=== PATIENT | female | born 1995 | race Caucasian/White ===

== ENCOUNTER 2016-09-07 16:50 | Emergency (ER) | payer OTHER ==
[~2016-09-07] VITALS: Ht 160 cm; Wt 45.8 kg
[~2016-09-07 16:50] MED LIST: ADVAIR 250/501 EA INH; ALBUTEROL0.09 MG/A2; ALLEGRA180 MG PO; AUGMENTIN 400 M1 CTB PO; AUGMENTIN ES-6050 ML PO; BACTRIM DS 8001 TA1 PO; BENTYL10 MG PO; BENTYL20 MG PO; BROMFED 2 MG/5120 ML; CARAFATE1 G1 PO; CATAFLAM50 MG PO; CLARITIN10 MG PO; CYCLOBENZAPRINE10 MG PO; FLEXERIL5 MG PO; IMPLANON68 MG ID; LAMICTAL25 MG PO; MEDROL DOSEPAK4 MG PO; MIRALAX POWDER17 G1 PO; MOTRIN400 MG PO; MOTRIN600 MG PO; MOTRIN800 MG PO; NAPROSYN500 MG PO; PRILOSEC20 MG PO; PROAIR HFA0.09 MG/AC IH; PROTONIX40 MG PO; PROVENTIL0.09 MG/AC IH; PROZAC20 MG PO; SEROQUEL25 MG PO; SINGULAIR10 MG PO; SINGULAIR5 MG PO; SYNTHROID0.025 MG PO; THE MEDICINE SH20 M1 PO; TRAZODONE100 MG PO; ZANTAC 150150 MG PO; ZITHROMAX Z PA250 MG PO; ZOFRAN ODT4 MG SL; ZOFRAN4 MG PO; Zofran4 MG PO
[2016-09-07] MEDS ORDERED: LAMICTAL100 MG PO (17:13)
[2016-09-07 17:34] LABS: BASO # 0.1 10*3/uL (0.0-0.1); BASO % 0.5 % (0.0-1.0); EOS # 0.1 10*3/uL (0.0-0.4); EOS % 0.9 % (1.0-4.0); HEMATOCRIT 42.4 % (37.0-47.0); HEMOGLOBIN 14.2 g/dl (12.0-16.0); LYMPH # 4.5 10*3/uL (1.3-4.4); LYMPH % 42.6 % (27.0-41.0); MEAN CELL VOLUME 90.8 fl (81.0-99.0); MEAN CORPUSCULAR HGB 30.4 pg (27.0-31.0); MEAN CORPUSCULAR HGB CONC 33.5 g/dl (33.0-37.0); MEAN PLATELET VOLUME 10.7 fl (9.6-12.3); MONO # 0.7 10*3/uL (0.1-1.0); MONO % 6.4 % (3.0-9.0); NEUT # 5.2 10*3/uL (2.3-7.9); NEUT % 49.3 % (47.0-73.0); PLATELET COUNT AUTOMATED 219 10*3/uL (130-400); RED BLOOD COUNT 4.67 10*6/uL (4.10-5.10); RED CELL DISTRI WIDTH 12.5 % (0-14.5); WHITE BLOOD COUNT 10.6 10*3/uL (4.8-10.8)
[2016-09-07 17:52] LABS: BILIRUBIN NEGATIVE (NEGATIVE); BLOOD 3+ (NEGATIVE); CLARITY CLEAR (CLEAR); COLOR YELLOW (YELLOW); GLUCOSE NEGATIVE (NEGATIVE); KETONE NEGATIVE (NEGATIVE); LEUKO ESTERASE TRACE (NEGATIVE); NITRITE NEGATIVE (NEGATIVE); PH 5.5 (5.0-9.0); PROTEIN TRACE (NEGATIVE); SPECIFIC GRAVITY >= 1.030 (1.005-1.030)
[2016-09-07 18:00] LABS: ALBUMIN 3.9 gm/dl (3.1-4.5); ALKALINE PHOSPHATASE 77 U/L (45-117); BILIRUBIN, TOTAL 0.5 mg/dl (0.2-1.0); BUN 6 mg/dl (7-24); CARBON DIOXIDE 26 mmol/L (21-32); CHLORIDE 107 mmol/L (98-107); EST GLOM FILT AFRICAN AMERICAN > 60 ml/min; GLUCOSE 81 mg/dL (65-99); POTASSIUM 4.1 mmol/L (3.5-5.1); SGOT/AST 15 IU/L (3-35); SGPT/ALT 13 U/L (12-78); SODIUM 142 mmol/L (136-145); TOTAL PROTEIN 6.9 gm/dL (6.4-8.2)
[2016-09-07 18:25] LABS: BACTERIA 3+; MUCOUS TRACE; URINE REFLEX COMMENT YES (NO)
[2016-09-07] MEDS ORDERED: BENTYL10 MG PO (21:48)
== END 2016-09-07 21:52 | disposition home or self-care (01) ==
LOC: ED 16:50
PROVIDERS: Emergency Medicine; Nurse Practitioner Family
DX: R10.9 Unspecified abdominal pain (principal); F17.200 Nicotine dependence, unspecified, uncomplicated; Z88.1 Allergy status to other antibiotic agents; Z79.899 Other long term (current) drug therapy

== ENCOUNTER → 2016-09-26 | Outpatient (CLI) | payer OTHER ==
[~2016-09-26] MED LIST changes: +LAMICTAL100 MG PO
[2016-09-26 10:07] LABS: BASO # 0.1 10*3/uL (0.0-0.1); BASO % 0.5 % (0.0-1.0); EOS # 0.1 10*3/uL (0.0-0.4); EOS % 1.3 % (1.0-4.0); HEMOGLOBIN 15.7 g/dl (12.0-16.0); IG # 0.1 10*3/uL (0.0-0.1); LYMPH # 2.9 10*3/uL (1.3-4.4); LYMPH % 26.5 % (27.0-41.0); MEAN CORPUSCULAR HGB 30.4 pg (27.0-31.0); MEAN CORPUSCULAR HGB CONC 32.7 g/dl (33.0-37.0); MEAN PLATELET VOLUME 10.9 fl (9.6-12.3); MONO # 0.6 10*3/uL (0.1-1.0); MONO % 5.7 % (3.0-9.0); NEUT # 7.1 10*3/uL (2.3-7.9); NEUT % 65.5 % (47.0-73.0); PLATELET COUNT AUTOMATED 239 10*3/uL (130-400); RED BLOOD COUNT 5.16 10*6/uL (4.10-5.10); RED CELL DISTRI WIDTH 13.3 % (0-14.5); WHITE BLOOD COUNT 10.8 10*3/uL (4.8-10.8)
[2016-09-26 10:33] LABS: ALBUMIN 4.7 gm/dl (3.1-4.5); ALKALINE PHOSPHATASE 94 U/L (45-117); BILIRUBIN, TOTAL 0.5 mg/dl (0.2-1.0); BUN 10 mg/dl (7-24); CARBON DIOXIDE 25 mmol/L (21-32); CHLORIDE 108 mmol/L (98-107); EST GLOM FILT AFRICAN AMERICAN > 60 ml/min; GLUCOSE 116 mg/dL (65-99); SGOT/AST 17 IU/L (3-35); SGPT/ALT 23 U/L (12-78); SODIUM 142 mmol/L (136-145); TOTAL PROTEIN 7.8 gm/dL (6.4-8.2)
== END | disposition home or self-care (01) ==
LOC: LAB 09:35
DX: R10.9 Unspecified abdominal pain (principal)

== ENCOUNTER 2019-01-11 16:42 | Emergency (ER) | payer OTHER ==
[~2019-01-11] VITALS: Ht 162.5 cm; Wt 54.4 kg
== END 2019-01-11 18:19 | disposition home or self-care (01) ==
LOC: ED 16:42
DX: S90.32XA Contusion of left foot, initial encounter (principal); F17.200 Nicotine dependence, unspecified, uncomplicated; Z88.1 Allergy status to other antibiotic agents; Z79.899 Other long term (current) drug therapy; W10.8XXA Fall (on) (from) other stairs and steps, initial encounter; Y93.89 Activity, other specified; Y92.89 Other specified places as the place of occurrence of the external cause; Y99.8 Other external cause status

== ENCOUNTER → 2019-02-16 | Outpatient (CLI) | payer OTHER ==
[2019-02-16 14:38] LABS: BASO % 0.4 % (0.0-1.0); EOS % 0.4 % (1.0-4.0); HEMATOCRIT 46.2 % (37.0-47.0); HEMOGLOBIN 15.3 g/dl (12.0-16.0); LYMPH # 3.2 10*3/uL (1.3-4.4); LYMPH % 29.3 % (27.0-41.0); MEAN CELL VOLUME 97.9 fl (81.0-99.0); MEAN CORPUSCULAR HGB 32.4 pg (27.0-31.0); MEAN CORPUSCULAR HGB CONC 33.1 g/dl (33.0-37.0); MEAN PLATELET VOLUME 10.7 fl (9.6-12.3); MONO # 0.8 10*3/uL (0.1-1.0); MONO % 7.4 % (3.0-9.0); NEUT # 6.8 10*3/uL (2.3-7.9); NEUT % 61.9 % (47.0-73.0); PLATELET COUNT AUTOMATED 215 10*3/uL (130-400); RED BLOOD COUNT 4.72 10*6/uL (4.10-5.10); RED CELL DISTRI WIDTH 11.4 % (0-14.5); WHITE BLOOD COUNT 10.9 10*3/uL (4.8-10.8)
[2019-02-16 15:07] LABS: ALKALINE PHOSPHATASE 87 U/L (45-117); BUN 10 mg/dl (7-24); CHLORIDE 105 mmol/L (98-107); CREATININE 0.91 mg/dL (0.55-1.02); IRON 139 ug/dL (50-170); POTASSIUM 3.7 mmol/L (3.5-5.1); SGOT/AST 11 IU/L (3-35); SGPT/ALT 19 U/L (12-78); SODIUM 138 mmol/L (136-145); TOTAL IRON BINDING CAPACITY 369 ug/dl (250-450); TOTAL PROTEIN 7.7 gm/dL (6.4-8.2)
== END | disposition home or self-care (01) ==
LOC: LAB 13:36
PROVIDERS: Nurse Practitioner Family
DX: L30.9 Dermatitis, unspecified (principal)

== ENCOUNTER → 2022-11-16 | Outpatient (CLI) | payer OTHER ==
[2022-11-16 16:18] LABS: BASO # 0.1 10*3/uL (0.0-0.1); BASO % 0.6 % (0.0-1.0); EOS # 0.1 10*3/uL (0.0-0.4); EOS % 0.8 % (1.0-4.0); HEMATOCRIT 42.1 % (37.0-47.0); LYMPH # 3.2 10*3/uL (1.3-4.4); LYMPH % 37.4 % (27.0-41.0); MEAN CELL VOLUME 94.4 fl (81.0-99.0); MEAN CORPUSCULAR HGB 32.1 pg (27.0-31.0); MEAN PLATELET VOLUME 10.3 fl (9.6-12.3); MONO # 0.9 10*3/uL (0.1-1.0); MONO % 10.1 % (3.0-9.0); NEUT # 4.4 10*3/uL (2.3-7.9); NEUT % 50.6 % (47.0-73.0); PLATELET COUNT AUTOMATED 240 10*3/uL (130-400); RED BLOOD COUNT 4.46 10*6/uL (4.10-5.10); WHITE BLOOD COUNT 8.6 10*3/uL (4.8-10.8)
[2022-11-16 16:18] LABS: BILIRUBIN Negative (Negative); BLOOD Negative (Negative); CLARITY Clear (Clear); COLOR Yellow (Yellow); GLUCOSE Negative (Negative); KETONE Negative (Negative); LEUKO ESTERASE Negative (Negative); NITRITE Negative (Negative); SPECIFIC GRAVITY 1.015 (1.001-1.030); UROBILINOGEN 0.2 E.U./dl (0.0-1.0)
[2022-11-16 16:32] LABS: RBC 0-2 rbc/hpf (0-2); WBC 0-2 wbc/hpf (0-5)
[2022-11-16 16:33] LABS: BACTERIA 2+
[2022-11-16 16:57] LABS: ALKALINE PHOSPHATASE 66 U/L (46-116); BUN 9 mg/dl (9-23); CHLORIDE 105 mmol/L (98-107); CHOLESTEROL 116 mg/dL (<200); LDL CHOLESTEROL 41 mg/dL (9-159); POTASSIUM 3.6 mmol/L (3.4-5.1); SGPT/ALT 11 U/L (10-49); TOTAL PROTEIN 6.7 gm/dL (6.0-8.0); TRIGLYCERIDES 68 mg/dl (<150)
== END | disposition home or self-care (01) ==
LOC: LAB 15:58
PROVIDERS: ATTEND Nurse Practitioner Family
DX: E55.9 Vitamin D deficiency, unspecified (principal); I10 Essential (primary) hypertension

== ENCOUNTER 2023-07-28 09:25 | Emergency (ER) | payer OTHER ==
[~2023-07-28] VITALS: Ht 160 cm; Wt 50.8 kg
[2023-07-28] MEDS ORDERED: DEXAMETHASONE 4 MG TAB PO ONE (10:00)
[2023-07-28] MEDS ORDERED: DEXAMETHASONE6 MG PO (10:04)
== END 2023-07-28 10:08 | disposition home or self-care (01) ==
LOC: ED 09:25
DX: U07.1 COVID-19 (principal); J45.909 Unspecified asthma, uncomplicated; K21.9 Gastro-esophageal reflux disease without esophagitis; R51.9 Headache, unspecified; Z88.1 Allergy status to other antibiotic agents; Z98.890 Other specified postprocedural states

== ENCOUNTER 2025-05-03 15:00 | Emergency (ER) | payer OTHER ==
[~2025-05-03] VITALS: Ht 160 cm; Wt 61.2 kg
[~2025-05-03 15:00] MED LIST changes: +DEXAMETHASONE6 MG PO
[2025-05-03 15:58] LABS: BASO # 0.0 10*3/uL (0.0-0.1); BASO % 0.4 % (0.0-1.0); EOS # 0.1 10*3/uL (0.0-0.4); EOS % 1.3 % (1.0-4.0); MEAN CELL VOLUME 92.4 fl (81.0-99.0); MEAN CORPUSCULAR HGB 30.2 pg (27.0-31.0); MEAN PLATELET VOLUME 9.9 fl (9.6-12.3); MONO # 0.6 10*3/uL (0.1-1.0); MONO % 5.8 % (3.0-9.0); NEUT # 7.1 10*3/uL (2.3-7.9); NEUT % 66.0 % (47.0-73.0); NUCLEATED RED BLOOD CELL 0.0 % (0.0-0.0); NUCLEATED RED BLOOD CELL 0.0 10*3/uL (0.0-0.0); PLATELET COUNT AUTOMATED 272 10*3/uL (130-400); RED CELL DISTRI WIDTH 12.8 % (0-14.5)
[2025-05-03 16:22] LABS: BUN 8 mg/dl (9-23); SGPT/ALT 11 U/L (5-49)
[2025-05-03] MEDS ORDERED: Acetaminophen/Oxycodone 5 MG/325 MG TABLET PO ONE ×2 (17:15→19:15)
[2025-05-03] MEDS ORDERED: Lidocaine Hydrochloride 2% 10 ML AMP SC ONE (17:55)
[2025-05-03] MEDS ORDERED: VIBRAMYCIN100 MG PO (19:08)
[2025-05-03] MEDS ORDERED: PERCOCET 5-3251 EACH PO (19:08)
== END 2025-05-03 19:23 | disposition home or self-care (01) ==
LOC: ED 15:00
PROVIDERS: Nurse Practitioner Family
DX: N61.1 Abscess of the breast and nipple (principal); J45.909 Unspecified asthma, uncomplicated; K21.9 Gastro-esophageal reflux disease without esophagitis; Z86.19 Personal history of other infectious and parasitic diseases; Z87.19 Personal history of other diseases of the digestive system; Z88.1 Allergy status to other antibiotic agents